=== PATIENT | female | born 2005 | race Caucasian/White ===

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

== ENCOUNTER 2023-09-26 16:28 | Outpatient (CLI) | payer BC, SELFPAY | END 2023-09-26 16:29 | disposition home or self-care (01) | LOC: NFLDREF 10-08 12:08 | PROVIDERS: Visit Provider Obstetrics & Gynecology | DX: F64.9 Gender identity disorder, unspecified (principal); Z79.899 Other long term (current) drug therapy | CPT/HCPCS: 84403 ==

== ENCOUNTER 2023-12-12 13:07 | Outpatient (CLI) | payer BC, SELFPAY ==
--- OUTSIDE RECORDS SUMMARY | 2023-12-12 13:09 | XMS_ITS | Clinical Summary ---
Author Name Unknown Organization [facility] Address [address] [place] [address] Care Team Providers Care Field Captain Name Role Phone Unavailable Primary Care Provider Unavailabl e Source Comments Patient records contain information from all sites at [facility]. For routine questions regarding patient records, call [phone] during business hours, M-F 8:00 AM - 5:00 PM Central Time. Record requests for emergency care only can be directed to [phone] at any time.[facility] Allergies No known active allergies Medications Medication Sig Dispensed Refills Start Date End Date Status escitalopram (LEXAPRO) 20 mg tablet Take 20 mg by mouth daily. Active Active Problems No known active problems Immunizations Name Administration Dates Next Due H1N1 All Forms 08/01/2009,06/23/2009 HepB, Unspecified 2003 MARYJANE 04/06/2009,03/25/2007 Social History Tobacco Use Types Packs/Day Years Used Date Smoking Tobacco: Never Overall Financial Resource Strain (CARDIA) Answe r Date Recorded How hard is it for you to pa y for the very basics like food, housing, medical care, and heating? Not hard at all 06/20/2023 Exercise Vital Sign Answer Date Recorde d On average, how many days pe r week do you engage in moderate to strenuous exercise (like a brisk walk)? 2 days 06/20/2023 On average, how many minutes do you engage in exercise at this level? 30 min 06/20/2023 Hunger Vital Sign Answer Date Recorded Within the past 12 months, y ou worried that your food would run out before you got the money to buy more. Never true 06/20/20 23 Within the past 12 months, t he food you bought just didn't last and you didn't have money to get more. Never true 06/20/2023 PRAPARE - Transportation Answer Date Re corded In the past 12 months, has l ack of transportation kept you from medical appointments or from getting medications? No 06/04 In the past 12 months, has l ack of transportation kept you from meetings, work, or from getting things needed for daily living? No 06/20/2023 Nutrition Answer Date Recorded Nutrition: EVOO Fat Source Unknown 06/20 On average, how many serving s of fruits and vegetables do you eat per day (serving size is equal to 1 cup or approximately the size of a tennis ball)? 0-2 06/20/2023 Dental Answer Date Recorded Dental: Regular Dentist Yes 06/20/20 Employment Answer Date Recorded Employment status Employed and actively working without restrictions 06/20/2023 Housing Stability Answer Date Recorded What is your living situation today? I have a [facility] place to live 06/20/2023 Sex and Gender Information Value Date Recorded Sex Assigned at Female 11/11/2022 10:18 AM CDT Gender Identity Not on file Sexual Orientation Not on file Last Filed Vital Signs Vital Sign Reading Time Taken Comments Blood Pressure 109/49 01/01/2019 12:01 PM CDT Pulse 68 01/01/2019 5:52 PM CDT Temperature 36.7 ??C (98.1 ??F) 01/01/2019 1 2:01 PM CDT Respiratory Rate 16 01/01/2019 5:52 PM CDT Oxygen Saturation 98% 01/01/2019 5:52 PM CDT Inhaled Oxygen Concentration - - Weight 59.3 kg (130 lb 11.7 oz) 019 11:47 AM CDT Height 168.5 cm (5' 6.34) 01/01/2019 1 1:47 AM CDT Body Mass Index 20.89 01/01/2019 11:47 AM CDT Plan of Treatment Health Maintenance Due Date Last Done Comments Chlamydia and Gonorrhea Screening 2003 HIV Screening 2003 Hearing Screening during Well Child Visit 2003 Hepatitis C Screening 2003 1 week Well Child Check-Up 2003 1 month Well Child Check-Up 2003 2 month Well Child Check-Up 2003 4 month Well Child Check-Up 2003 6 month Well Child Check-Up 2003 9 month Well Child Check-Up 01/17/2004 12 month Well Child Check-Up 04/18/2004 15 month Well Child Check-Up 07/18/2004 18 month Well Child Check-Up 10/16/2004 2 year Well Child Check-Up 04/18/2005 30 month Well Child Check-Up 10/16/2005 3 year Well Child Check-Up 04/18/2006 Well Child Check-Up Completed in Past Year 04/18/2006 4 year Well Child Check-Up 04/18/2007 5 year Well Child Check-Up 04/18/2008 6 year Well Child Check-Up 04/18/2009 7 year Well Child Check-Up 04/18/2010 8 year Well Child Check-Up 04/18/2011 9 year Well Child Check-Up 04/18/2012 10 year Well Child Check-Up 04/18/2013 11 year Well Child Check-Up 04/18/2014 12 year Well Child Check-Up 04/18/2015 13 year Well Child Check-Up 04/18/2016 14 year Well Child Check-Up 04/18/2017 Vision Screening during Well Child Visit 2017 15 year Well Child Check-Up 04/18/2018 16 year Well Child Check-Up 04/18/2019 17 year Well Child Check-Up 04/18/2020 18 year Well Child Check-Up 04/18/2021 19 year Well Child Check-Up 04/18/2022 COVID-19 Vaccine ( season) 2023 06/21/2021, 11/12/2020, 10/22/2020 20 year Well Child Check-Up 04/18/2023 Well Child Check-Up ([facility]) 04/18/2023 Influenza Vaccine (#1) 2023 , 08/31/2019, 05/09/2017, Additional history exists Depression Screening (Annual PHQ-2) 08/04/2023 DTaP,Tdap,and Td Vaccines (7 - Td or Tdap) 09/12/2025 09/12/2015, 05/24/2008, 10/11/2004, Additional history exists Hepatitis B Vaccines Completed 03/01/2004, 2003, 2003 Pneumococcal vaccine (0-64 years) Aged Out 10/11/2004, 03/01/2004, 2003, Additional history exists No longer eligible based on patient's age to complete this topic Meningococcal Vaccine Aged Out 09/12/2015 No jeremie chaz eligible based on patient's age to complete this topic HPV Vaccines Completed 07/02/2016, 09/12/2015
--- OUTSIDE RECORDS SUMMARY | 2023-12-12 13:09 | XMS_ITS ---
Author Name Unknown Organization [facility] Address [address] [place] [address] Care Team Providers Care Sales Solutions Representative Name Role Phone Unavailable Unavailable Unavailable Surgery Details Not on file Complications Check Surgery Details section. Procedure Estimated Blood Loss Check Surgery Details section. Procedure Findings Check Surgery Details section. Procedure Specimens Taken Check Surgery Details section.
--- OUTSIDE RECORDS SUMMARY | 2023-12-12 13:09 | XMS_ITS | Referral Summary ---
Author Name Unknown Organization [facility] Address [address] [place] [address] Care Team Providers Care Pool Hall Inspector Name Role Phone Unavailable Primary Care Provider Unavailabl e Source Comments Patient records contain information from all sites at [facility]. For routine questions regarding patient records, call [phone] during business hours, M-F 8:00 AM - 5:00 PM Central Time. Record requests for emergency care only can be directed to [phone] at any time.[facility] Allergies No known active allergies Medications Medication [...] your living situation today? I have a [facility] place to live 06/20/2023 Sex and [...] 01/01/2019 11:47 AM CDT Plan of Treatment Not on file
--- OUTSIDE RECORDS SUMMARY | 2023-12-12 13:09 | XMS_ITS | Continuity of Care Document ---
Author Name Unknown Organization [facility] Address [address] [place] [address] Phone Care Team Providers Care Ct Manager Name Role Phone Anton Batista MD Unavailable Unavailable Allergies, Adverse Reactions, Alerts Substance Reaction Status Criticality No Known Allergies Active No Inform ation Medications Medication Instructions Dosage Effective Dates (start - stop) Status Comments No Drug Therapy Prescribed Procedures Procedure Date Office/Outpatient Visit,Est, Mod 2014 Office/Outpatient Visit,Est, Mod 2013 Office/Outpatient Visit,Est, Mod 2013 Office/Outpatient Visit,New, Mod 2013 Advance Directives Directive Yes / No Effective Date File Name No Information Encounters Encounter Description Practice Location Reason(s) For Visit Diagnoses Date Provider Providers Copied on Encounter [facility], [address], [place], [place], [id number], tel:[phone] [facility] [place] No Information Lester Walton. [facility] [place], [address], [address], [place], [place], [id number] , [place]. [phone] Office/Outpat ient Visit,Est, Mod [facility], [address], [place], [place], [id number], tel:[phone] [facility] Lester Walton. [facility] [place], [address], [address], [place], [place], [id number] , [place]. tel:[phone] Referring Provider: Aldo Argueta [facility] [address] [place], [address]. tel:[phone] Office/Outpat ient Visit,Est, Mod Z [facility], [address], [place], [address], [place] tel:[phone] [facility] No Information 4 Lester Walton. [facility], [address], [address], [place], [place], [id number] , [place]. [phone] Referring Provider: Aldo Argueta [facility] [address] [place], [address]. tel:[phone] Office/Outpat ient Visit,Est, Mod Z [facility] [place], [address] [place] [address], [address], [place] tel:[phone] [facility] SCOLIOSIS IN OTH DISKYPHOSIS [facility] 4 Lester Walton. [facility] [place], [address], [address], [place], [place], [id number] , [place]. tel:[phone] Referring Provider: Aldo Argueta, [facility] [address] [place], [address]. tel:[phone] Office/Outpat ient Visit,New, Mod Z [facility] [place], [address] [place] [address], [address], [place] tel:[phone] [facility] No Information 4 Lester Walton. [facility] [place], [address], [address], [place], [place], [id number] , [place]. tel:[phone] Referring Provider: Aldo Argueta [facility] [address] [place], [address]. tel:[phone] Family History Family Member Type Diagnosis Age At Onset No Information Payers Payer name Insurance type Covered green party ID Authoriza tialvin(s) [facility] [id number] [facility] [id number] Social History Type Description Quantity Date Captured Comments Alcohol Use Details Unknown Caffeine Use Details Unknown Tobacco Use Status No Information Smoking Status No Information Sex Female Chief Complaint And Reason For Visit No Information Reason For Referral Reason For Referral No Information Plan Of Treatment Date Type Action Status Future Order: Radiology Order PA /Lateral FS OOB (PALatFSOOB), Ordered on: Ordered History Of Present Illness Encounter Date Complaint History Of Prese nt Illness No Information Functional Status Date Functional Assessmen t No Information Medications Administered Medication Instructions Dosage Effective Dates (start - stop) Status Comments No Drug Therapy Prescribed Instructions Date Instruction Additional Infor mation No Information Assessments Type Assessment Date No Information Patient Care Teams Name Effective Dates (start - stop) Status Members No Information
--- OUTSIDE RECORDS SUMMARY | 2023-12-12 13:09 | XMS_ITS | Encounter Summary ---
Author Name Unknown Organization [facility] Address [address] [place] [address] Care Team Providers Care Air Traffic Control Specialist Center Name Role Phone Unavailable Primary Care Provider Unavailabl e Reason for Referral * Outpatient (Routine) - Closed Specialty Diagnoses / Procedures Referred By Huan miner Referred To Contact Otorhinolaryngology Diagnoses Drip Post Nasal Francisco Thapa M.D. [address] [place] [address] [facility] Referral ID Status Reason Start Date Expiration Date Visits Re quested Visits Authorized [id number] Closed 12/30/2018 12/30/2019 2 1 Encounter Details Date Type Department Care Team (Late st Contact Info) Description 12/30/2018 [facility] [address] [place] [address] Francisco Thapa M.D. [address] [place] [phone] Drip Post Nasal (Primary Dx) Social History Tobacco Use Types Packs/Day Years Used Date Smoking Tobacco: Never Assessed Sex and Gender Information Value Date Recorded Sex Assigned at Female 11/11/2022 10:18 AM CDT Gender Identity Not on file Sexual Orientation Not on file documented as of this encounter Plan of Treatment Scheduled Referrals Name Type Priority Associated Diagnoses Order Schedule Otolaryngology Referral Outpatient Referral Routine Drip Post Nasal Expected: 12/30/2018 (Approximate), Expires: 12/30/2021 documented as of this encounter Visit Diagnoses Diagnosis Drip Post Nasal- Primary documented in this encounter
[2023-12-12 17:28] LABS: Chlamydia DNA Amplified* NOT DETECTED (No Detected); GC DNA Amplified* NOT DETECTED (No Detected)
== END 2023-12-12 13:08 | disposition home or self-care (01) ==
PROVIDERS: Visit Provider Obstetrics & Gynecology
DX: Z11.3 Encounter for screening for infections with a predominantly sexual mode of transmission (principal)
CPT/HCPCS: 86592; 86703; 86706; 86803; 87340; 87491; 87591

== ENCOUNTER 2024-10-22 13:24 | Outpatient (CLI) | payer OTHER, SELFPAY | END 2024-10-22 13:25 | disposition home or self-care (01) | LOC: NFLDREF 10-26 05:24 | PROVIDERS: Visit Provider Obstetrics & Gynecology | DX: Z79.899 Other long term (current) drug therapy (principal) | CPT/HCPCS: 84403 ==

== ENCOUNTER 2024-11-08 15:36 | Outpatient (CLI) | payer OTHER, SELFPAY ==
[2024-11-08 20:24] LABS: Chlamydia DNA Amplified* NOT DETECTED (No Detected); GC DNA Amplified* NOT DETECTED (No Detected)
== END 2024-11-08 15:37 | disposition home or self-care (01) ==
LOC: NFLDREF 15:37
PROVIDERS: Visit Provider Obstetrics & Gynecology
DX: Z11.3 Encounter for screening for infections with a predominantly sexual mode of transmission (principal)
CPT/HCPCS: 87491; 87591

== ENCOUNTER 2025-07-22 06:00 | Day surgery (SDC) | payer OTHER, SELFPAY ==
[2025-07-22] VITALS (17 sets, daily range): BP systolic 95–116; BP diastolic 56–80; PULSE 58–91; RESP 14–16; TEMP 36.3–36.9; O2SAT 91–99; BMI 26.6
[2025-07-22] MEDS: LACTATED RINGERS 1000 ML 1,000 ML 100 ML IV (06:51)
[2025-07-22] MEDS: SODIUM CHLORIDE 0.9 % (FLUSH) 10 ML SYRINGE IVF (06:51)
[2025-07-22 06:53] LABS: Hemoglobin* 13.8 gm/dL (12.0-16.0)
[2025-07-22] MEDS: SCOPOLAMINE 1 MG/3 DAY PATCH 1 PATCH TRANSDERMA (06:56)
[2025-07-22] MEDS: GABAPENTIN 600 MG TABLET PO (06:56)
[2025-07-22] MEDS: ACETAMINOPHEN 500 MG TABLET 1000 MG PO (06:56)
[2025-07-22 07:12] LABS: Creatinine* 0.8 mg/dL (0.5-1.5); Est. Creatinine Clearance* 107.27; Estimated Glomerular Filt Rate 107 ml/min
--- NOTE | 2025-07-22 07:16 | W.PM.H&PU ---
History & Physical Update History & Physical Update H&P Reviewed and patient assessed: No changes noted
[2025-07-22 07:18] LABS: HCG Qualitative Serum* Negative (Negative)
[2025-07-22 07:25] LABS: Ur HCG Qualitative* Negative (Negative)
[2025-07-22] MEDS: LACTATED RINGERS 1000 ML 1,000 ML 125 ML IV (07:45)
[2025-07-22] MEDS: LIDOCAINE 1 % PF 30 ML INJECTION (08:05)
[2025-07-22] MEDS: BUPIVACAINE 0.25% 30 ML INJECTION (08:05)
--- NOTE | 2025-07-22 08:48 | P.NB_ITS ---
Nerve Block Nerve Block Time Seen by Provider: 07:30 Date Seen: 07/22/25 Type of block requested by surgeon for post-operative analgesia: TAP Side: bilateral Time out performed: Yes Verification of patient name: Yes Verification of date of : Yes Site marking: site marked Name of person performing procedure: Thanh Continuous monitoring Was continuous monitoring of O2 sat, B/P, personnel monitor, recorded every 15 minutes?: Yes Procedure Checklist: sterile prep, needles and gloves Ultrasound guided. Images saved: Yes Medications given in 5ml increments after negative aspiration: Marcaine %: 0.25 mL: 30 Needle gauge: 20 and Exparel mL: 10 Patient tolerated procedure well: Yes Additional comments: Needle noted between internal oblique and transversus abdominus. Local spread visualized Block Charges Block Charge (with Pro Fee): TAP Bilateral Use of Ultrasound Machine for Block: Yes- US Guidance/pain block
--- NOTE | 2025-07-22 10:13 | P.ANES_ITS ---
Anesthesia Charges Start Date/Time Anesthesia Start Date: 07/22/25 Anesthesia Start Time: 07:18 Stop Date/Time Anesthesia Stop Date: 07/22/25 Anesthesia Stop Time: 10:11 Coding CPT Codes CPT Codes: ANESTH SURG LOWER ABDOMEN - 47017 ([id number]) P1 - NORMAL HEALTHY PATIENT, QK - POWERPLANT OPERATOR 2-4 CNCRNT ANES PROC
--- NOTE | 2025-07-22 10:13 | W.ANESCHARGE ---
Anesthesia Charges Start Date/Time Anesthesia Start Date: 07/22/25 Anesthesia Start Time: 07:18 Stop Date/Time Anesthesia Stop Date: 07/22/25 Anesthesia Stop Time: 10:11 Coding CPT Codes CPT Codes: ANESTH SURG LOWER ABDOMEN - 30846 ([id number]) P1 - NORMAL HEALTHY PATIENT, QK - CONTRACT DESIGNER 2-4 CNCRNT ANES PROC
--- NOTE | 2025-07-22 11:44 | P.ANES_ITS ---
Anesthesia Charges Start Date/Time Anesthesia Start Date: 07/22/25 Anesthesia Start Time: 07:18 Stop Date/Time Anesthesia Stop Date: 07/22/25 Anesthesia Stop Time: 10:11 Coding CPT Codes CPT Codes: ANESTH SURG LOWER ABDOMEN - 89738 ([id number]) QK - BROKERAGE CLERK 2-4 CNCRNT ANES PROC, QX - QUALITY ASSURANCE CLERK SVC W/ MD MED DIRECTION, P1 - NORMAL HEALTHY PATIENT
--- NOTE | 2025-07-22 11:44 | W.ANESCHARGE ---
Anesthesia Charges Start Date/Time Anesthesia Start Date: 07/22/25 Anesthesia Start Time: 07:18 Stop Date/Time Anesthesia Stop Date: 07/22/25 Anesthesia Stop Time: 10:11 Coding CPT Codes CPT Codes: ANESTH SURG LOWER ABDOMEN - 58864 ([id number]) QK - STUDENT ADMISSIONS CLERK 2-4 CNCRNT ANES PROC, QX - RATE CLERK SVC W/ MD MED DIRECTION, P1 - NORMAL HEALTHY PATIENT
--- NOTE | 2025-07-22 12:00 | P.GYNPRC_ITS ---
Procedure Note Date of procedure: 07/22/25 Will [facility] bill your pro fee for this procedure?: Yes Pre-op diagnosis: Gender dysphoria Post-op diagnosis: Same Procedure: Total laparoscopic hysterectomy with bilateral salpingectomy, right oophorectomy and cystoscopy Anesthesia: GETA Complications: None Surgeon: Rosina Carroll MD Construction Trades Contractor: [place] Frederick Estimated blood loss (mL): 5 IV fluids (mL): 700 Urine Output (mL): 100 Pathology: specimen obtained, sent to pathology (Uterus, cervix, bilateral fallopian tubes and right ovary) Condition: stable Disposition: same day Findings: 1. Upon pelvic exam under anesthesia, the cervix and vagina were normal in appearance. Uterus was mobile and anteverted, of normal size and texture. There were no palpable adnexal masses. 2. Upon laparoscopy, survey of the upper abdomen revealed a normal appearance to the inferior edge of the liver, gallbladder and stomach. Bowels were grossly normal appearance. Survey of the pelvis revealed normal appearance to the uterus. Bilateral tubes and ovaries were normal in appearance. The cul-de-sac and bladder reflection were normal in appearance. Procedure Description: Patient was taken to the operating room with IV running. They received cefazolin in preoperative prophylaxis. They were positioned in dorsal lithotomy position with their legs fully supported in Yellofin stirrups. General anesthesia was administered. They were prepped and draped in the usual sterile fashion. Pelvic exam under anesthesia was performed for the above-noted findings. Speculum was inserted. Cervix visualized and grasped along its anterior lip with a single-tooth tenaculum. Cervix was dilated with Hegar dilators to accommodate the VCare uterine manipulator. A small-sized colpotomizer cup was selected. The tip of the uterine manipulator was inserted through the cervix into the uterine cavity and the balloon was inflated. The speculum was removed. The colpotomy cup was advanced, surrounding the cervix, and the proximal occluder was moved up along the shaft of the VCare and fixed in place. Singh catheter was placed. Patient's legs were then placed in neutral position. Attention was turned to patient's abdomen. A 5 mm infraumbilical incision was made with a scalpel and carried down to the underlying layer of fascia with the hemostat. 5 mm camera was placed within the 5 mm Fios Kii trocar, and advanced under direct visualization through the anterior abdominal wall into the peritoneal cavity, while tenting up the anterior abdominal wall. The trocar was removed. The balloon was inflated, holding the port in place. Pneumoperitoneum was achieved. Survey of the abdomen and pelvis revealed the above-noted findings. Three additional port sites were created. The first was in the patient's left lower quadrant, just superomedial to the left ASIS. The second was a hand's breadth superior to and slightly medial to the first. The third was in the patient's right lower quadrant, just superomedial to the right ASIS. An 11 mm incision was made in the left lower quadrant, and a 5 mm incision was made at the other 2 sites, after assuring that large vessels were out of harm's way. A 10 mm Fios Kii port was inserted at the left lower quadrant site, and a 5 mm Fios Kii port at each of the other 2 sites, under direct visualization and without complication. The balloon on each of the four ports was inflated, holding each in place. Attention was first turned to the left fallopian tube, which was divided from the mesosalpinx, using the LigaSure advanced bipolar cautery device, proceeding laterally to medially, and the tube was amputated at the left uterine cornua. This was removed through the port site and sent to pathology. The left round ligament was cauterized and transected with the LigaSure device. The utero-ovarian ligament was cauterized and transected, and the remnants of the right broad ligament were cauterized and transected between these two structures. The bladder flap was created on the patient's left side, moving laterally to medially. The left uterine artery was cauterized and transected with the Thunderbeat device. Using the colpotomizer cup as a guide, the peritoneum and underlying stroma was dissected off the anticipated site of colpotomy over the posterior vaginal fornix. Attention was then turned to the right side of the uterus, where the right infundibulopelvic ligament was cauterized and transected with the Thunderbeat device. The right round ligament was cauterized and transected, and the remnants of the right round ligament were cauterized and transected between these two structures. The bladder flap was created on the patient's right side, and dissection was carried laterally to medially, meeting the dissection where it had left off from the patient's right side. The right uterine artery was cauterized and transected with the LigaSure device. The bladder reflection was moved well below the colpotomizer cup anteriorly. The vaginal fornix was then entered posterior laterally with the monopolar paddle, using the colpotomizer cup as a guide. This device was moved along the circumference of the colpotomizer cup, until the uterus and cervix were freed from their attachments to the pelvis. The uterus was pulled into the patient's vagina, maintaining the pneumoperitoneum. The cuff was closed with a series of interrupted sutures 0 Vicryl. These were placed and tied intracorporeally. Ports were left in place but all instruments were removed and pneumoperitoneum was released. Patient's legs were placed back in lithotomy position. The uterus was removed from the vagina and was sent to pathology for further analysis. Speculum and digital exams were performed, showing an intact cuff with no obvious active bleeding. The Singh catheter was removed from the bladder, and the cystoscope was assembled with saline inflow, outflow, and light cord in place. The patient was given IV sodium fluorescein prior to the cystoscopy. Cystoscope was advanced through the urethra into the bladder, and survey of the mucosa revealed a normal appearance. The bladder dome was intact. Bilateral ureteral jets were noted. Cystoscope was removed and Singh catheter replaced. Patient's legs were again placed in neutral position. Insufflator was reattached to the port and pneumoperitoneum again achieved. Survey of the pelvis revealed hemostasis. The 11 mm Fios Kii port in the left lower quadrant was removed after balloon on the port was deflated. The Demetri-Travis laparoscopic closure device was inserted through this port. With the help of this device, the fascia was closed with a single suture of 0-Vicryl. Thereafter, I was slightly low palpate a fascial defect. This was closed with a [id number] suture 0 Vicryl under direct visualization. Procedure was deemed complete. The balloons of all remaining port sites were deflated, and all ports were removed after pneumoperitoneum was released. The skin of each port site was closed in a subcuticular fashion with 4 0 Monocryl. Surgical glue was applied above this. Patient tolerated procedure well and was taken to recovery area in stable cond ition. Postoperative debrief was verbalized with OR staff, including a verification of pathology specimens to be sent as described above.
--- NOTE | 2025-07-22 13:20 | SUR.PHASEII ---
Bladder backfilled with 300 cc warm, sterile saline. Patient tolerated the procedure well. They have been up and ambulated around the room and they deny feeling lightheaded or dizzy. They have been able to tolerate fluids and food. Patient will let us know when they have the urge to void.
--- NOTE | 2025-07-22 13:28 | SUR.PHASEII ---
Singh catheter discontinued. 10 cc sterile saline removed from balloon.
--- NOTE | 2025-07-22 14:00 | SUR.PHASEII ---
MD updated on patient. They were able to void 250 cc after backfilling bladder, up ambulating, tolerating fluids and food, declined pain medication. Patient desires discharge. MD will be to patient's room shortly.
== END 2025-07-22 14:02 | disposition home or self-care (01) ==
PROVIDERS: Visit Provider Obstetrics & Gynecology
PROC: (CPT 58571; principal; 2025-07-22 07:15)
DX: F64.9 Gender identity disorder, unspecified (principal); N94.3 Premenstrual tension syndrome; G89.18 Other acute postprocedural pain; Z79.890 Hormone replacement therapy
CPT/HCPCS: 58571; 00840; 36415; 64488; 76942; 81025; 82565; 84703; 85018; 86850; 86900; 86901; A4314; A9270; J0665; J0666; J0690; J2003; J7120